=== PATIENT | female | born 1990 | race Caucasian/White ===

== ENCOUNTER 2022-07-07 01:53 | Emergency (ER) | payer MEDICAID, SELFPAY ==
[2022-07-07 01:53] VITALS: BP 141/88; PULSE 124; RESP 18; TEMP 37.1; O2SAT 100; BMI 25.1
[2022-07-07 02:30] VITALS: BP 118/66; PULSE 126; O2SAT 99
--- NOTE | 2022-07-07 02:38 | HMH.EDGENADL ---
Discharge Plan Disposition Patient Disposition: Home, Self-Care Condition: Fair Prescriptions Prescriptions: New ondansetron [ondansetron] 4 mg tablet,disintegrating 4 mg PO TIDP PRN (Reason: Nausea) Qty: 10 0RF No Action ondansetron HCl 4 mg tablet 4 mg PO Q8HP PRN (Reason: nausea & vomiting) amitriptyline 50 mg tablet 50 mg PO HS Label Comments: TAKE 1 TABLET BY MOUTH EVERY DAY IN THE EVENING buspirone 10 mg tablet 10 mg PO BID zolpidem 5 mg tablet 7.5 mg PO HS Label Comments: TAKE 1.5 TABS BY MOUTH NIGHTLY NEEDED FOR SLEEP FOR UP TO 30 DAYS. Paxlovid (EUA) 300 mg (150 mg x 2)-100 mg tablets,dose pack See Rx Instructions .ROUTE .COMPLEX Rx Instructions: as directed Referrals Follow up/Referrals: Provider,Referral, MD [Primary Care Provider] - See instructions Clinical Impressions Clinical Impression: COVID Instructions Patient Instructions: DI for COVID-19 (Suspected or Confirmed ) Discharge ED Provider: Atul Dupree General Adult HPI General Chief complaint: Nausea/Vomiting/Diarrhea Stated complaint: COVID +, n/v, weak Time Seen by Provider: 07/07/22 02:00 Mode of Arrival: EMS Source of Information: Patient Limitations: No Limitations Description of Symptoms (Recalled from ER Triage Doc. by RN): Pt c/o N/V since when she tested positive for COVID. Pt denies any other complaints. She says she has been unable to keep her meds down. History of Present Illness HPI narrative: Patient is a 32-year-old female with no pertinent past medical history who presents with concern for multiple complaints. She says that she has been sick since and has been getting progressively worse. She said that she also recently tested positive for COVID. She said that she has been extremely nauseous and has been vomiting. She has not been able to keep anything down. She states that she has been having cough. She says her main complaint is a intense frontal headache. Denies any numbness or tingling into his extremities. Denies any sputum production. Related Data Home Medications Medication Instructions Recorded Confirmed amitriptyline 50 mg tablet 50 mg PO HS . 07/07/22 07/07/22 buspirone 10 mg tablet 10 mg PO BID anxitey 07/07/22 07/07/22 nirmatrelvir 300 mg (150 mg See Rx Instructions .Route 07/07/22 07/07/22 x2)-ritonavir 100 mg tablet,dose .COMPLEX covid pack(EUA) (Paxlovid) ondansetron HCl 4 mg tablet 4 mg PO Q8HP PRN nausea & vomiting 07/07/22 07/07/22 zolpidem 5 mg tablet 7.5 mg PO HS sleep 07/07/22 07/07/22 Previous Rx's Medication Instructions Recorded ondansetron 4 mg disintegrating 4 mg PO TIDP PRN Nausea #10 tabs 07/07/22 tablet Allergies Allergy/AdvReac Type Severity Reaction Status Date / Time From ZITHROMAX Z-PUNEET Allergy Intermediate I-HIVES Uncoded 05/14/17 15:41 [facility] Disclaimer: The information contained in this section may have been updated after the patient was seen, as this information can be updated by other users. Social History Smoking Status: Never smoker alcohol intake: current current occupational status: employed Travel in the last 8 weeks: None ROS Obtained: Yes All systems reviewed & no additional complaints except as documented Physical Exam General General appearance: alert, in no apparent distress and other (Ill-appearing) Head Head exam: atraumatic, normocephalic and normal inspection Eye Eye exam: Present normal appearance, PERRL and EOMI ENT ENT exam: Present normal exam, normal oropharynx, mucous membranes moist and normal external ear exam Neck Neck exam: Present normal inspection, full ROM and trachea midline; Absent meningismus or lymphadenopathy Chest Chest inspection: Present normal inspection and symmetric chest wall rise; Absent tenderness Respiratory Respiratory exam: Present normal lung sounds bilaterally; Absent respiratory distress Cardiova
[2022-07-07 02:41] VITALS: BP 135/75; PULSE 98; RESP 18; TEMP 36.8; O2SAT 99
[2022-07-07 03:00] VITALS: BP 106/59; PULSE 90; O2SAT 99
[2022-07-07 03:30] VITALS: BP 115/65; PULSE 106; O2SAT 98
[2022-07-07 04:00] VITALS: BP 105/65; PULSE 88; O2SAT 98
--- NOTE | 2022-07-07 04:00 | PC.NURSE ---
pt ready for d/c and she is calling mother to come pick her up
--- NOTE | 2022-07-07 05:32 | PC.NURSE ---
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
== END 2022-07-07 05:32 | disposition home or self-care (01) ==
PROVIDERS: Emergency Provider Student in an Organized Health Care Education/Training Program
DX: U07.1 COVID-19 (principal)
CPT/HCPCS: 96361; 96374; 96375; 99285; J0131; J2405

== ENCOUNTER 2024-07-20 17:22 | Emergency (ER) | payer OTHER, SELFPAY ==
[2024-07-20 18:01] VITALS: BP 128/99; PULSE 99; RESP 14; TEMP 37.2; O2SAT 100; BMI 24.7
[2024-07-20 18:03] VITALS: BP 128/99; PULSE 103; O2SAT 98
--- NOTE | 2024-07-20 18:35 | HMH.EDGENADL ---
Discharge Plan Disposition Patient Disposition: Home, Self-Care Prescriptions Prescriptions: No Action ondansetron HCl 4 mg tablet 4 mg PO Q8HP PRN (Reason: nausea & vomiting) amitriptyline 50 mg tablet 50 mg PO HS Patient Comments: TAKE 1 TABLET BY MOUTH EVERY DAY IN THE EVENING buspirone 10 mg tablet 10 mg PO BID zolpidem 5 mg tablet 7.5 mg PO HS Patient Comments: TAKE 1.5 TABS BY MOUTH NIGHTLY NEEDED FOR SLEEP FOR UP TO 30 DAYS. Paxlovid 300 mg (150 mg x 2)-100 mg tablets,dose pack See Rx Instructions .ROUTE .COMPLEX Rx Instructions: as directed ondansetron [ondansetron] 4 mg tablet,disintegrating 4 mg PO TIDP PRN (Reason: Nausea) Qty: 10 0RF Referrals Follow up/Referrals: Ryley Parker II, MD [Staff Physician] - See instructions Rohit Jin MD [Primary Care Provider] - See instructions Activity Restrictions/Add. Instructions Additional Instructions/Restrictions: You were evaluated in the emergency department today. Your CT scan is concerning for colitis. Your stool panel is pending. We will keep an eye out for it and let you know if there are any medications needed based on the results. Please follow-up closely with gastroenterology for further evaluation and management in case this could be inflammatory. I have provided you with information for Dr. Parker. Call his office to schedule an appointment. Please also follow-up closely with your primary care provider. 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 Return to the emergency department for new or worsening symptoms. Clinical Impressions Clinical Impression: Colitis, Diarrhea Stand Alone Forms Stand Alone Forms: Work/School Release Instructions Patient Instructions: DI for Diarrhea and Traveler's Diarrhea -- Adult, DI for Colitis Print Language Print Language: Croatian Discharge ED Provider: Diane Hanna General Adult HPI General Chief complaint: PAIN Stated complaint: N/V/D left shoulder pain,Abd pain X2 weeks Time Seen by Provider: 07/20/24 17:57 Mode of Arrival: Ambulatory Source of Information: Patient Limitations: No Limitations Description of Symptoms (Recalled from ER Triage Doc. by RN): pt presents to ED with c/o nausea, vomitting, diarrhea, right shoulder pain. symptoms began the 14th. pt was seen in [facility] ER on the . pt reports right shoulder pain has been worse today. pain feels like pressure or gas. right sided flank pain as well. pt reports she had an ultrasound done and was told she had a bad gallbladder . History of Present Illness HPI narrative: This patient is a 34-year-old female who denies significant past medical history presenting to the emergency department for evaluation with concern for abdominal pain, nausea, vomiting, and diarrhea for 2 weeks. Patient states that she has mostly had nonbloody diarrhea but has started to have some blood streaks in the toilet. Stool itself is pale and pasty. She notes that she has had some right shoulder pain as well and had an outpatient ultrasound that did not show cholecystitis but she did have borderline size of CBD. She notes that she also was diagnosed with urinary tract infection by her primary care provider and prescribed Macrobid, which she has not picked up or started taking it. Related Data Home Medications ?Medication ?Instructions ?Recorded ?Confirmed amitriptyline 50 mg tablet 50 mg PO HS . 07/07/22 07/07/22 buspirone 10 mg tablet 10 mg PO BID anxitey 07/07/22 07/07/22 nirmatrelvir 300 mg (150 mg See Rx Instructions .Route 07/07/22 07/07/22 x2)-ritonavir 100 mg tablet,dose .COMPLEX covid pack (Paxlovid) ondansetron HCl 4 mg tablet 4 mg PO Q8HP PRN nausea & vomiting 07/07/22 07/07/22 zolpidem 5 mg tablet 7.5 mg PO HS sleep 07/07/22 07/07/22 Previous Rx's ?Medication ?Instructions ?Recorded ondansetron 4 mg disintegrating 4 mg PO TIDP PRN Nausea #10 tabs 07/07/22 tablet Allergies Allergy/AdvReac Type Severity Reaction Status Date / Time From ZITHROMAX Z-PUNEET Allergy Intermediate I-HIVES Uncoded 05/14/17 15:41 [facility] Disclaimer: The information contained in this section may have been updated after the patient was seen, as this information can be updated by other users. Social History Smoking Status: Never smoker alcohol intake: current current occupational status: employed Travel in the last 8 weeks: None Have you lived/traveled outside US in past 30 days?: No Contact w/someone who lives/traveled outside US past 30 days?: No Exposure to someone with infectious disease in past 14 days?: No Do you have a fever (greater than 100.4 F or 38 C)?: No Have you tested positive for COVID-19: No Exposed to someone with COVID-19 in past 14 days?: No Do you have a sore throat?: No Do you have a cough?: No Do you have any weakness?: No Do you have any diarrhea?: No Are you experiencing any unusual bleeding?: No Do you have any muscle aches/pain?: No Do you have any abdominal pain?: Yes Are you experiencing loss of taste or smell?: No ROS Obtained: Yes All systems reviewed & no additional complaints except as documented Physical Exam General General appearance: alert and in no apparent distress Head Head exam: atraumatic and normocephalic Eye Eye exam: Present normal appearance, PERRL and EOMI ENT ENT exam: Present normal exam, normal oropharynx, mucous membranes moist and normal external ear exam Neck Neck exam: Present normal inspection, full ROM and trachea midline; Absent tenderness Chest Chest inspection: Present normal inspection and symmetric chest wall rise; Absent tenderness Respiratory Respiratory exam: Present normal lung sounds bilaterally; Absent respiratory distress, wheezes, stridor or accessory muscle use Cardiovascular Cardiovascular exam: Present regular rate and normal rhythm Abdominal Exam Abdominal exam: Present soft and tenderness (Generalized, especially lower abdomen); Absent distention or guarding Extremities Exam Extremities exam: Present normal inspection, full ROM and normal capillary refill; Absent tenderness or edema Back Exam Back exam: Present normal inspection and full ROM; Absent tenderness Neurological Exam Neurological exam: Present alert, oriented X3, CN II-XII intact and normal gait; Absent motor sensory deficit Psychiatric Psychiatric exam: Present normal affect and normal mood Skin Skin exam: Present warm and dry Medical Decision Making Medical Records Medical records reviewed: Yes I reviewed the patient's medical records. Screening: Per USPSTF and CDC recommendations, given the prevalence of disease in our region, it is our hospital?s policy to screen for HIV and viral Hepatitis for all patients aged 18 and over and those with ongoing risk factors. Jose A Inquiry Pt receiving controlled substance: No Vital Signs: 07/20/24 18:01 07/20/24 18:03 07/20/24 20:16 Temperature 99.0 F 98.3 F Temperature Source Oral Oral Pulse Rate 103 H 78 Pulse Rate [Left Radial] 99 H Respiratory Rate 14 18 Blood Pressure 128/99 H 127/90 Blood Pressure [Right Arm] 128/99 H Blood Pressure Mean [Right Arm] 108 Blood Pressure Position 02 Sat by Pulse Oximetry 100 98 99 Oxygen Delivery Method Room Air Room Air Room Air 07/20/24 20:56 07/20/24 22:06 Temperature 98.6 F Temperature Source Oral Pulse Rate 86 78 Pulse Rate [Left Radial] Respiratory Rate 18 Blood Pressure 131/91 H 128/78 Blood Pressure [Right Arm] Blood Pressure Mean [Right Arm] Blood Pressure Position Sitting Sitting 02 Sat by Pulse Oximetry 97 Oxygen Delivery Method Room Air Lab Data Lab results reviewed: Yes I reviewed the patient's lab results. Lab Results 07/20/24 18:10: WBC 8.2, RBC 4.29, Hgb 13.0, Hct 39.4, MCV 91.8, MCH 30.3, MCHC 33.0, RDW 11.5, Plt Count 307, MPV 9.3, Neut % (Auto) 73.7, Lymph % (Auto) 20.3, [place] % (Auto) 5.1, Eos % (Auto) 0.1, Baso % (Auto) 0.4, Neut # (Auto) 6.1, Lymph # (Auto) 1.7, [place] # (Auto) 0.4, Eos # (Auto) 0.0, Baso # (Auto) 0.0, Sodium 139, Potassium 3.7, Chloride 103, Carbon Dioxide 27, Anion Gap 12.7, BUN 6 L, Creatinine 0.60, Estimated Creat Clear 135, Estimated GFR 116, Est GFR ( Amer) 140, Glucose 96, Calcium 9.5, Total Bilirubin 0.6, AST 24, ALT 21, Alkaline Phosphatase 72, Total Protein 8.1, Albumin 5.3 H, Globulin 2.8, Albumin/Globulin Ratio 1.9 H, Lipase 32, Serum HCG, Qual Negative, HCV Ab NADINE w/Rflx PCR Qn Negative, HIV Ag/Ab Combo Qual Negative 07/20/24 18:47: Lactate 0.6 L 07/20/24 20:10: Urine Color Yellow, Urine Appearance Clear, Urine pH 6.0, Ur Specific [place] 1.025, Urine Protein Negative, Urine Glucose (UA) Negative, Urine Ketones 1+, Urine Blood 2+ A, Urine Nitrate Negative, Urine Bilirubin Negative, Urine Urobilinogen 0.2, Ur Leukocyte Esterase Negative, Urine RBC 5-10, Urine WBC 3-5, Ur Squamous Epith Cells 3-5, Urine Bacteria 1+, Urine Mucus 2+ 07/20/24 18:10 07/20/24 18:10 Orders (Tests/Meds): ED MEDICATIONS Discontinued Medications Generic Name Dose Route Start Last Admin Trade Name Freq PRN Reason Stop Dose Admin Acetaminophen 1,000 mg 07/20/24 18:27 07/20/24 19:20 Acetaminophen 1,000mg/100ml Vial IV 07/20/24 18:28 1,000 mg ONCE ONE Administration Famotidine 20 mg 07/20/24 18:27 07/20/24 19:20 Famotidine 20mg/2ml Vial IV 07/20/24 18:28 20 mg ONCE ONE Administration Lactated Ringer's 1,000 mls @ 999 mls/hr 07/20/24 18:27 07/20/24 19:19 Lactated Ringer's 1000 Ml Bag IV 07/20/24 19:27 999 mls/hr .Q1H1M ONE Administration Iopamidol 75 ml 07/20/24 20:30 07/20/24 20:31 Iopamidol-370 (76%);100ml Bottle IV 07/20/24 20:31 75 ml ONCE ONE Administration Ketorolac Tromethamine 15 mg 07/20/24 18:27 07/20/24 19:20 Ketorolac 30mg/Ml Vial IV 07/20/24 18:28 15 mg ONCE ONE Administration Nitrofurantoin Macrocrystals 100 mg 07/20/24 21:49 07/20/24 22:02 Nitrofurantoin 100mg Capsule PO 07/20/24 21:50 100 mg ONCE ONE Administration Ondansetron HCl 4 mg 07/20/24 18:27 07/20/24 19:21 Ondansetron 4mg/2ml Vial IV 07/20/24 18:28 4 mg ONCE ONE Administration Sodium Chloride 8 ml 07/20/24 18:27 Sodium Chloride 0.9% 10ml Vial IV 08/19/24 18:26 NEEDED PRN dilute pepcid Sodium Chloride 10 ml 07/20/24 20:30 07/20/24 20:31 Sodium Chloride 0.9% 10ml Syr (Rad Only) IV 07/20/24 20:31 10 ml ONCE ONE Administration ORDERS Category Date Time Status CT abdomen pelvis w con Stat Cat Scan 07/20/24 19:16 Completed Complete Blood Count Auto Diff Stat Lab 07/20/24 18:10 Completed Comprehensive Metabolic Panel Stat Lab 07/20/24 18:10 Completed Diarrhea 23 Panel, PCR Stat Lab 07/20/24 20:13 Received HIV Combo Stat Lab 07/20/24 18:10 Completed Hepatitis C Ab Qual. W/ RFX Stat Lab 07/20/24 18:10 Completed Lactic Acid Stat Lab 07/20/24 18:47 Completed Lipase Stat Lab 07/20/24 18:10 Completed Serum [HCG Qualitative, Serum] Stat Lab 07/20/24 18:10 Completed UA [Urinalysis and Microscopic] Stat Lab 07/20/24 20:10 Completed Medical Decision Narrative: In summary, this patient is a 34-year-old female presenting to the Emergency Department for evaluation of abdominal pain, nausea, vomiting, diarrhea for 2-week. Differential diagnoses considered include but are not limited to infectious colitis, inflammatory colitis, gastroenteritis, dehydration, electrolyte derangements, pancreatitis, cholecystitis. Ruling out the most morbid conditions drove assessment. On exam, the patient is well-appearing sitting upright in no acute distress with reassuring vital signs and cardiac telemetry. She has generalized abdominal tenderness but no rebound or guarding. No rigidity. Workup included CBC, CMP, lipase, diarrhea panel, urinalysis, CT abdomen pelvis with IV contrast. I independently interpreted CT scan prior to the radiologist read and noted concerns for colitis. Please see their read for final interpretation. Labs were obtained that demonstrated reassuring CBC with no significant leukocytosis or anemia. Chemistry is reassuring with no notable electrolyte derangements or RUPERT. Lactic acid is normal. Urinalysis demonstrates 2+ blood and some white blood cells, she is not currently on her period. She also has 1+ bacteria and squamous epithelial cells. PCP diagnosed UTI and prescribed Macrobid which she has not picked up or started taking it. I did give a dose of Macrobid here. Diarrhea panel was sent and is pending.. On reassessment, patient had good improvement after administration of bolus of IV fluids, IV Toradol, IV Zofran, IV Pepcid, IV acetaminophen. Abdominal exam benign, she is tolerating oral intake. Diarrhea panel sent and is pending. Only concerning finding on workup is possible UTI as well as findings concerning for colitis. I feel she is appropriate for discharge home with close follow-up with primary care as well as GI. She already has medications prescribed by PCP. She was discharged with instructions for supportive management and strict return precautions.. Critical Care Critical Care Time Critical Care Time: No
[2024-07-20 18:44] LABS: Basophils % 0.4 % (0.1-2.0); Eosinophils % 0.1 % (0.1-12.0); Hematocrit 39.4 % (37.0-47.0); Lymphocytes # 1.7 K/mm3 (0.7-4.5); Lymphocytes % 20.3 % (10-50); Mean Corpuscular Hemoglobin 30.3 pg (27.0-31.2); Mean Corpuscular Volume 91.8 fl (81-99); Mean Platelet Volume 9.3 fl (7.4-10.4); Monocytes # 0.4 K/mm3 (0.1-1.0); Monocytes % 5.1 % (1.7-9.3); Neutrophils # 6.1 K/mm3 (1.8-7.8); Neutrophils % 73.7 % (37.0-80.0); Platelet Count 307 K/mm3 (142-424); Red Blood Count 4.29 M/mm3 (4.20-5.40); Red Cell Distribution Width 11.5 % (11.5-17.5); White Blood Count 8.2 K/mm3 (4.8-10.8)
[2024-07-20 18:49] LABS: Albumin Level 5.3 g/dl (3.5-5.0); Chloride 103 mmol/L (98-107); Potassium 3.7 mmoL/L (3.5-5.1); Sodium 139 mmol/L (136-145)
[2024-07-20 18:52] LABS: Alanine Aminotransferase 21 U/L (12-78); Albumin/Globulin Ratio 1.9 (1.1-1.8); Alkaline Phosphatase 72 U/L (38-126); Anion Gap 12.7 mEq/L (5-15); Aspartate Amino Transferase 24 U/L (14-36); Bilirubin,Total 0.6 mg/dl (0.2-1.3); Blood Urea Nitrogen 6 mg/dl (7-17); Carbon Dioxide 27 mmol/L (22.0-30.0); Creatinine Clearance Estimated 135 mL/min (50-200); Estimated Glomerular Filt Rate 116 ml/min (>60); GFR (African American) 140 ML/MIN (>60); Globulin 2.8 g/dL (1.3-3.2); Lipase 32 U/L (23-300); Total Protein,Serum 8.1 g/dl (6.3-8.2)
[2024-07-20 18:53] LABS: Calcium 9.5 mg/dl (8.4-10.2); Glucose 96 mg/dl (74-100)
[2024-07-20 19:06] LABS: Lactic Acid 0.6 mmol/L (0.7-2.1)
--- NOTE | 2024-07-20 19:16 | CT_ITS ---
PROCEDURE INFORMATION: Exam: CT Abdomen And Pelvis With Contrast Exam date and time: 07/20/2024 8:32 PM Age: 34 years old Clinical indication: Other: Gen abd pain/n/v/sam TECHNIQUE: Imaging protocol: Computed tomography of the abdomen and pelvis with contrast. Radiation optimization: All CT scans at this facility use at least one of these dose optimization techniques: automated exposure control; mA and/or kV adjustment per patient size (includes targeted exams where dose is matched to clinical indication); or iterative reconstruction. Contrast material: ISOVUE; Contrast volume: 75 ml; Contrast route: IV; COMPARISON: No relevant prior studies available. FINDINGS: Liver: Hepatomegaly. No mass. Gallbladder and biliary ducts: Normal. No calcified stones. No ductal dilation. Pancreas: Normal. No ductal dilation. Spleen: Small calcified granuloma. No splenomegaly. Adrenal glands: Normal. No mass. Kidneys and ureters: Normal. No hydronephrosis. Stomach and bowel: Mild apparent colonic wall or haustral thickening. No obstruction. Appendix: No evidence of appendicitis. Intraperitoneal space: Unremarkable. No free air. No significant fluid collection. Vasculature: Unremarkable. No abdominal aortic aneurysm. Lymph nodes: Unremarkable. No enlarged lymph nodes. Urinary bladder: Unremarkable as visualized. Reproductive: Unremarkable as visualized. Bones/joints: Degenerative changes. No acute fracture. Soft tissues: Fat containing umbilical hernia. IMPRESSION: Mild apparent colonic wall or haustral thickening, findings which can be seen with an infectious or inflammatory colitis.
[2024-07-20] MEDS: LACTATED RINGERS 1000ML 1,000 ML 999 ML IV (19:19)
[2024-07-20] MEDS: ACETAMINOPHEN 1,000MG/100ML VIAL 1000 MG IV (19:20)
[2024-07-20] MEDS: KETOROLAC 30MG/ML VIAL 15 MG IV (19:20)
[2024-07-20] MEDS: FAMOTIDINE 20MG/2ML VIAL 20 MG IV (19:20)
[2024-07-20] MEDS: ONDANSETRON 4MG/2ML VIAL 4 MG IV (19:21)
[2024-07-20 19:34] LABS: HIV Combo NEGATIVE (Negative)
[2024-07-20 19:41] LABS: Hepatitis C Ab Qual. W/ RFX NEGATIVE (Negative)
[2024-07-20 20:03] LABS: HCG Qualitative, Serum Negative (Negative)
[2024-07-20 20:16] VITALS: BP 127/90; PULSE 78; RESP 18; TEMP 36.8; O2SAT 99
[2024-07-20 20:17] LABS: Microscopic, Urine URINE MICROSCOPIC (MICROSCOPIC)
[2024-07-20 20:17] LABS: Adenovirus F 40/41, stool Not Detected (NotDetected); Astrovirus Not Detected (NotDetected); Campylobacter Not Detected (NotDetected); Clostridium Difficile A/B, PCR Not Detected (NotDetected); Cryptosporidium Not Detected (NotDetected); Cyclospora Cayetanesis Not Detected (NotDetected); Entamoeba histolytica Not Detected (NotDetected); Enteroaggregative E coli Not Detected (NotDetected); Enteropathogenic E coli Not Detected (NotDetected); Enterotoxigenic E coli Not Detected (NotDetected); Giardia lamblia Not Detected (NotDetected); Norovirus Not Detected (NotDetected); Plesimonas Shigalloides, PCR Not Detected (NotDetected); Rotavirus A Not Detected (NotDetected); Salmonella, PCR Not Detected (NotDetected); Sapovirus Not Detected (NotDetected); Shiga-like toxin E coli Not Detected (NotDetected); Shigella Enterovasive E coli Not Detected (NotDetected); Vibrio Cholerae Not Detected (NotDetected); Vibrio, PCR Not Detected (NotDetected); Yersinia Entercolitica, PCR Not Detected (NotDetected)
[2024-07-20] MEDS: SODIUM CHLORIDE 0.9% 10ML SYR (RAD ONLY) 10 ML IV (20:31)
[2024-07-20] MEDS: IOPAMIDOL-370 (76%);100ML BOTTLE 75 ML IV (20:31)
[2024-07-20 20:35] LABS: Appearance,Urine CLEAR (Clear); Blood, Urine 2+ (Negative); Color,Urine YELLOW (Yellow); Glucose,Urine (UA) Negative (Negative); Ketones,Urine 1+ (Negative); Leukocyte Esterase,Urine Negative (Negative); Nitrate,Urine Negative (Negative); Protein,Urine Negative (Negative); Specific Gravity, Urine 1.025 (1.005-1.030); Urobilinogen,Urine 0.2 EU/dl (0.2)
[2024-07-20 20:56] VITALS: BP 131/91; PULSE 86; O2SAT 97
[2024-07-20 21:23] LABS: Bilirubin,Urine Negative (Negative)
[2024-07-20 21:52] LABS: Bacteria,Urine 1+ /lpf; Mucus,Urine 2+ /lpf
[2024-07-20] MEDS: NITROFURANTOIN 100MG CAPSULE 100 MG PO (22:02)
[2024-07-20 22:06] VITALS: BP 128/78; PULSE 78; RESP 18; TEMP 37; O2SAT 98
== END 2024-07-20 22:06 | disposition home or self-care (01) ==
PROVIDERS: Emergency Provider Emergency Medicine; PCP Family Medicine
DX: K52.9 Noninfective gastroenteritis and colitis, unspecified (principal); R11.2 Nausea with vomiting, unspecified; M25.511 Pain in right shoulder; R10.31 Right lower quadrant pain
CPT/HCPCS: 36415; 74177; 80053; 81001; 83605; 83690; 84703; 85025; 86803; 87389; 87507; 96361; 96374; 96375; 99285; J0131; J1885; J2405; J7120; Q9967; S0028

== ENCOUNTER 2024-08-19 07:01 | Day surgery (SDC) | payer OTHER, SELFPAY ==
[2024-08-17 16:26] VITALS: BMI 22.3
[2024-08-19 08:44] VITALS: BP 134/88; PULSE 100; RESP 16; TEMP 37.2; O2SAT 100
[2024-08-19] MEDS: LACTATED RINGERS 1000ML 1,000 ML 50 ML IV (08:51)
--- NOTE | 2024-08-19 08:57 | EXP.ANES.CKL ---
[facility] Disclaimer: The information contained in this section may have been updated after the patient was seen, as this information can be updated by other users. Medical History Fibroadenoma of right breast Surgical History History of Family History Other No significant family history Social History (Updated 08/19/24 @ 08:49 by Amarilis Tian RN) Smoking Status: Current every day smoker tobacco type: e-cigarettes alcohol intake: never substance use type: denies use current occupational status: employed Travel in the last 8 weeks: None caffeine: Yes Have you lived/traveled outside US in past 30 days?: No Contact w/someone who lives/traveled outside US past 30 days?: No Exposure to someone with infectious disease in past 14 days?: No Do you have a fever (greater than 100.4 F or 38 C)?: No Have you tested positive for COVID-19: No Exposed to someone with COVID-19 in past 14 days?: No Do you have a sore throat?: No Do you have a cough?: No Do you have any weakness?: No Are you experiencing any nausea/vomitting?: No Do you have any diarrhea?: No Are you experiencing any unusual bleeding?: No Do you have any muscle aches/pain?: No Do you have any abdominal pain?: No Are you experiencing loss of taste or smell?: No [facility] Anesthesia Checklist Patient Identification Patient Identification: Arm Band Structural Data Admitted From: Home Planned Operative Procedure/s: EGD/Colonoscopy Consent for Planned Operative Procedure(s) Verified: Yes Verified Documents: Surgical Consent and History and Physical NPO Status Verified Time NPO: 06:00 (finished prep) Additional verifications Anesthesia Reactions: No Airway Assessment Mallampati Score:: Class II C-Spine Mobility Assessed: Yes TMJ Mobility Assessed: Yes Dentition: Good Dentition Neurological Assessment Level of Consciousness: Awake, Alert and Appropriate Anesthesia Plan Anesthesia Risk discussed: Yes Anesthesia Plan: Verified ASA Class: II Anesthesia Type: MAC
[2024-08-19 09:08] LABS: Urine Pregnancy, HCG Qual. Negative (Negative)
--- NOTE | 2024-08-19 09:12 | EXP.HP ---
History of Present Illness *Admission Date: 08/19/24 *Reason for visit:: Blood in stool with fecal urgency, diarrhea and right upper quadrant abdomi *History of present illness: Ms. Browne is a 34-year-old female who is here for diagnostic colonoscopy secondary to diarrhea, rectal bleeding, right upper quadrant abdominal pain and urgency. The examination is deemed medically necessary for diagnostic colonoscopy. The patient has been seen, interviewed and examined prior to the procedure by both myself and the anesthesia provider. [facility] Disclaimer: The information contained in this section may have been updated after the patient was seen, as this information can be updated by other users. Medical History Fibroadenoma of right breast Surgical History History of Family History Other No significant family history Social History (Updated 08/19/24 @ 08:49 by Amarilis Tian RN) Smoking Status: Current every day smoker tobacco type: e-cigarettes alcohol intake: never substance use type: denies use current occupational status: employed Travel in the last 8 weeks: None caffeine: Yes Have you lived/traveled outside [place] in past 30 days?: No Contact w/someone who lives/traveled outside US past 30 days?: No Exposure to someone with infectious disease in past 14 days?: No Do you have a fever (greater than 100.4 F or 38 C)?: No Have you tested positive for COVID-19: No Exposed to someone with COVID-19 in past 14 days?: No Do you have a sore throat?: No Do you have a cough?: No Do you have any weakness?: No Are you experiencing any nausea/vomitting?: No Do you have any diarrhea?: No Are you experiencing any unusual bleeding?: No Do you have any muscle aches/pain?: No Do you have any abdominal pain?: No Are you experiencing loss of taste or smell?: No Review of Systems Review of Systems Review of systems (narrative): Negative *Cardiovascular Comments: Negative *Gastrointestinal Comments: Negative *Genitourinary Comments: Negative *Musculoskeletal Comments: Negative *Neurologic Comments: Negative Meds Home Medications and Allergies Home Medications ?Medication ?Instructions ?Recorded ?Confirmed ?Type amitriptyline 50 mg tablet 50 mg PO HS . 07/07/22 08/19/24 History buspirone 10 mg tablet 10 mg PO BID anxitey 07/07/22 08/19/24 History pantoprazole 40 mg tablet,delayed 40 mg PO DAILY 07/28/24 08/19/24 History release (Protonix) promethazine 25 mg tablet 25 mg PO Q6H PRN Nausea 07/28/24 08/19/24 History zolpidem 5 mg tablet 10 mg PO HS sleep 07/28/24 08/19/24 History sodium,potassium,mag sulfates 17.5 See Rx Instructions PO .COMPLEX 08/11/24 Rx gram-3.13 gram-1.6 gram oral soln #354 mL (Suprep Bowel Prep Kit) New Prescriptions to Start Prescriptions: Allergies Allergy/AdvReac Type Severity Reaction Status Date / Time tramadol Allergy Intermediate Hives Verified 08/19/24 08:42 Exam Data for Last 24 hours Vital signs and Labs for Last 24 Hours: Temp Pulse Resp BP Pulse Ox O2 Del Method 99.0 F 100 H 16 134/88 100 Room Air 08/19/24 08:44 08/19/24 08:44 08/19/24 08:44 08/19/24 08:44 08/19/24 08:44 08/19/24 08:44 Laboratory Results - last 24 hr 08/19/24 08:33: Urine HCG, Qual Negative I & O for Last 24 hours: Intake & Output 08/16/24 08/17/24 08/18/24 08/19/24 23:59 23:59 23:59 23:59 Weight 130 lb *Routine HEENT Exam Head: Present normocephalic Eye: Present EOMI and PERRL ENT: Present mucous membranes moist *Routine Neck Exam Neck: Present supple *Routine Respiratory Exam Respiratory: Present CTA bilaterally *Routine Cardiovascular Exam Cardiovascular: Present RRR *Routine Abdominal Exam Abdominal: Present soft and normoactive bowel sounds; Absent tenderness *Routine Rectal Exam Rectal:: deferred *Routine Genitalia Exam Genitalia:: deferred *Routine Extremities Exam Extremities: Absent cyanosis, clubbing or edema *Routine Skin Exam Skin: Present warm; Absent rash *Routine Neurological Exam Neurological: Present alert and oriented X3 Assessment and Plan *Assessment and plan (1) Blood in stool: Status: Acute Category: Medical Code(s): K92.1 - Melena (2) Diarrhea: Status: Acute Category: Medical Code(s): R19.7 - Diarrhea, unspecified (3) Colitis: Status: Acute Category: Medical Code(s): K52.9 - Noninfective gastroenteritis and colitis, unspecified (4) RUQ pain: Status: Acute Category: Medical Code(s): R10.11 - Right upper quadrant pain Plan A/P: 1. Rectal bleeding, diarrhea and probable colitis is the preprocedural diagnosis. The patient has had right upper quadrant abdominal pain as well. The patient will be anesthetized/sedated using MAC sedation. The patient has been seen and examined. Cardiac and lung assessment prior to the examination is stable. Proceed with planned diagnostic colonoscopy
[2024-08-19 09:20] VITALS: O2SAT 98
--- NOTE | 2024-08-19 09:23 | HMH.PROCNOTE ---
[facility] Procedure Note Date: 08/19/24 Time: 09:34 Procedure Note:: Upper Endoscopy Procedure Report: Esophagogastroduodenoscopy with cold biopsies Endoscopost: Ryley Parker II, MD Referring Physician: Rohit Jin MD, [address] [place] [address] [place] [address] Date of Procedure: August 19, 2024 Equipment: Olympus GIF 190 standard upper endoscope Sedation: MAC sedation Indications: Ms. Browne is a 34-year-old female who is here for diagnostic upper endoscopy and colonoscopy secondary to nausea, loss of appetite and some weight loss. She has had moderate belching and gassiness with no significant bloating. She reports right upper quadrant abdominal pain. All of this is relatively new. She had an ultrasound of the gallbladder that showed a normal common bile duct (7 mm). Her CT scan of the abdomen and pelvis on July 20, 2024 showed some apparent colonic wall or haustral thickening possibly secondary to inflammatory or infectious colitis. The patient's HIDA scan showed a 78% gallbladder ejection fraction. Her hemoglobin and hematocrit are normal. She did have a PCR stool panel that was negative for microbial pathogens. The patient has had constant diarrhea with 6-7 bowel movements daily. She has noted blood and mucus with her bowel movements and does have some obstipation/excessive wiping. The patient formerly had chronic constipation and this was an abrupt change in bowel habits. The patient reports no heartburn, reflux or dysphagia. She does have some pyrosis. She reports no family history of IBD, colitis, Crohn's or colon cancer. Procedure: Prior to the procedure, a history and physical exam was performed, and patient's medications and allergies were reviewed. The risks, benefits and alternatives of the sedation and procedure were discussed with the patient. All questions were answered and informed consent was obtained. The patient was brought to the procedure room. Patient identification and proposed procedure were verified by the physician and the nurse. The patient was placed in a left lateral decubitus position and the scope was passed under direct vision. Throughout the procedure, the patient's blood pressure, pulse, and oxygen saturations were monitored continuously. The upper GI endoscopy was accomplished without difficulty. The patient tolerated the procedure well. Findings: The scope was passed directly into the upper esophagus and advanced to the third portion of the duodenum. The post bulbar duodenum, ampulla and duodenal bulb were normal with normal mucosa and conniventes. Cold biopsies were taken from the first portion of duodenum and duodenal bulb to rule out celiac disease. The scope was withdrawn through a normal duodenal bulb and pylorus into the stomach. There was minimal linear reactive gastropathy of the prepyloric antrum. The body and fundus of the stomach were normal. Upon retroflexion there was no hiatal hernia. Biopsies were taken from the antrum. The scope was then withdrawn into the esophagus. There was no evidence of reflux esophagitis or Smiley's. There were mild tertiary contractions. The remainder of the esophageal mucosa was normal. Impression: 1. Nonerosive GERD with mild esophageal dysmotility 2. Mild linear prepyloric antral gastropathy Plan: I will follow-up the biopsies. 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 I will proceed with diagnostic colonoscopy. We will discuss treatment options.
--- NOTE | 2024-08-19 09:36 | P.PCN_ITS ---
[facility] Procedure Note Date: 08/19/24 Time: 09:52 Procedure Note:: Colonoscopy Procedure Report: Colonoscopy with cold biopsies and ablation/coagulation of internal hemorrhoids Endoscopist: Ryley Parker II, MD Referring physician: Rohit Jin MD, [address] [place] [address] [place] [address] Date of Procedure: August 19, 2024 Equipment: Olympus 190 variable stiffness pediatric colonoscope Sedation: MAC sedation Indication: Ms. Browne is a 34-year-old female who is here for diagnostic upper endoscopy and colonoscopy secondary to nausea, loss of appetite and some weight loss. She has had moderate belching and gassiness with no significant bloating. She reports right upper quadrant abdominal pain. All of this is relatively new. She had an ultrasound of the gallbladder that showed a normal common bile duct ([address]). Her CT scan of the abdomen and pelvis on July 20, 2024 showed some apparent colonic wall or haustral thickening possibly secondary to inflammatory or infectious colitis. The patient's HIDA scan showed a 78% gallbladder ejection fraction. Her hemoglobin and hematocrit are normal. She did have a PCR stool panel that was negative for microbial pathogens. The patient has had constant diarrhea with 6-7 bowel movements daily. She has noted blood and mucus with her bowel movements and does have some obstipation/excessive wiping. The patient formerly had chronic constipation and this was an abrupt change in bowel habits. The patient reports no heartburn, reflux or dysphagia. She does have some pyrosis. She reports no family history of IBD, colitis, Crohn's or colon cancer. Procedure: Prior to the procedure, a history and physical exam was performed, and patient's medications and allergies were reviewed. The risks, benefits and alternatives of the sedation and procedure were discussed with the patient. All questions were answered and informed consent was obtained. The patient was brought to the procedure room. Patient identification and proposed procedure were verified by the physician and the nurse. The patient was placed in a left lateral decubitus position and the scope was passed under direct vision. Throughout the procedure, the patient's blood pressure, pulse, and oxygen saturations were monitored continuously. The colonoscopy was accomplished without difficulty. The patient tolerated the procedure well. Findings: On digital rectal examination there was normal rectal tone. There were no external hemorrhoids. The colonoscope was introduced through the anal canal to the rectum and advanced to the cecum. The ileocecal valve and appendiceal orifice were identified. The scope was advanced a short distance into the ileum which appeared grossly normal. The scope was then withdrawn into the colon. The cecum, ascending, transverse, descending, sigmoid and rectum were grossly normal. There was some angulation at the hepatic flexure suggestive of hepatic flexure syndrome. Cold biopsies were taken from the right colon to rule out microscopic colitis. There were no mucosal abnormalities identified. Upon retroflexion within the rectum there were grade 1-2 internal hemorrhoids. The columns of hemorrhoids were ablated/coagulated using monopolar ablation to destruction. The preparation was excellent throughout with [place] Preparation Score of 9. The cecal time was 10 minutes. Impression: 1. Normal colonoscopy with intubation of the terminal ileum 2. 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 Hepatic flexure syndrome is a term used to describe bloating, muscle spasms of the colon and upper abdominal pain on the right side and is thought to be caused by trapped gas and stool at the hepatic flexure/curvature of the colon which is in the right upper colon. The pain can be excruciating and debilitating. I would recommend fiber bulk (FiberCon 2 tablets p.o. every morning) and treatment of her hepatic flexure syndrome/functional abdominal pain with neuromodulation. We will discuss additional treatment options for her IBS?D and consider Viberzi especially if her biopsies showed no evidence of microscopic colitis.
[2024-08-19 09:56] VITALS: BP 101/62; PULSE 78; RESP 18; TEMP 36.3; O2SAT 100
[2024-08-19 10:06] VITALS: BP 104/66; PULSE 100; RESP 18; O2SAT 100
[2024-08-19 10:16] VITALS: BP 110/76; PULSE 98; RESP 16; O2SAT 100
[2024-08-19 10:21] VITALS: BP 120/73; PULSE 86; RESP 18; O2SAT 100
== END 2024-08-19 10:25 | disposition home or self-care (01) ==
PROVIDERS: PCP Internal Medicine Cardiovascular Disease; Visit Provider Internal Medicine Gastroenterology
PROC: 0DJ08ZZ Inspection of Upper Intestinal Tract, Via Natural or Artificial Opening Endoscopic (ICD-10-PCS; CPT 45378; principal; 2024-08-19 09:00)
DX: K31.9 Disease of stomach and duodenum, unspecified (principal); K21.9 Gastro-esophageal reflux disease without esophagitis; K22.4 Dyskinesia of esophagus; K64.8 Other hemorrhoids; K92.1 Melena; R19.7 Diarrhea, unspecified; R10.11 Right upper quadrant pain; K59.89 Other specified functional intestinal disorders; R11.0 Nausea; R63.0 Anorexia; R63.4 Abnormal weight loss
CPT/HCPCS: 43239; 45380; 45388; 81025; J7120